=== PATIENT | male | born 1965 | race Caucasian/White ===

== ENCOUNTER 2019-01-10 09:42 | Emergency (ER) | payer BC, SELFPAY ==
[2019-01-10 10:56] LABS: Absolute Lymphocytes (CBC) 1.2 K/uL (0.7-4.9); Basophils % 0.7 % (0-1.3); Hematocrit 47.5 % (39.6-49.0); Lymphocytes % 22.8 % (15.3-44.8); MPV 9.4 fL (7.6-11.3); RBC Red Blood Cell Count 5.25 M/uL (4.33-5.43)
[2019-01-10 11:18] LABS: Albumin 3.9 g/dL (3.4-5.0); Bilirubin Direct 0.3 mg/dL (0-0.2); Bilirubin Total 1.8 mg/dL (0.2-1.0); Potassium 4.2 mmol/L (3.5-5.1); Protein, Total 6.6 g/dL (6.4-8.2)
--- NOTE | 2019-01-10 11:52 | RAD REPORT ---
EXAM DESCRIPTION: CT - Abdomen Pelvis W Contrast - 01/10/2019 11:37 am CLINICAL HISTORY: Abdominal pain/left upper quadrant pain COMPARISON: none. TECHNIQUE: Computed axial tomography of the abdomen pelvis was obtained. 100 cc Isovue-300 was admin istered intravenously. Oral contrast was not requested which limits evaluation of bowel. All CT scans are performed using dose optimization technique as appropriate and may include automated exposure control or mA/KV adjustment according to patient size. FINDINGS: Fatty liver. Spleen, pancreas, adrenal and kidneys appear unremarkable. There is no evidence of diverticulitis. Normal appendix Umbilical hernia contains fat. Mild stranding is present within the fat. This may indicate mild infla mmation. Neck measures 23 millimeters. Small right inguinal hernia IMPRESSION: Umbilical hernia
--- NOTE | 2019-01-10 13:48 | ER ---
Nurse's Notes [facility] Name: Storm Bravo Age: 53 yrs Sex: Male : 1965 Arrival Date: 01/10/2019 Time: 09:44 Bed 27 Private MD: Diagnosis: Umbilical hernia without obstruction or gangrene Presentation: 01/10 09:46 Presenting complaint: Worsening LLQ pain after lifting heavy equipment 1 month ago. Pt hb was told he has a hernia, unable to follow up with surgeon. Transition of care: patient was not received from another setting of care. Onset of symptoms was December 2018. Risk Assessment: Do you want to hurt yourself or someone else? Patient reports no desire to harm self or others. Initial Sepsis Screen: Does the patient meet any 2 criteria? No. Patient's initial sepsis screen is negative. Does the patient have a suspected source of infection? No. Patient's initial sepsis screen is negative. Care prior to arrival: None. 09:46 Method Of Arrival: Ambulatory hb 09:46 Acuity: TEJAL 3 hb Historical: - Allergies: 09:49 No Known Allergies; hb - PMHx: 09:49 arrythmias; hb - PSHx: 09:49 None; hb - Immunization history:: Adult Immunizations up to date. - Social history:: Smoking status: Patient/guardian denies using tobacco. - Ebola Screening: : No symptoms or risks identified at this time. Screenin:17 Abuse screen: Denies threats or abuse. Denies injuries from another. Nutritional aj1 screening: No deficits noted. Tuberculosis screening: No symptoms or risk factors identified. 14:08 Fall Risk None identified. rv Assessment: 10:17 General: Appears in no apparent distress. uncomfortable, Behavior is calm, cooperative, aj1 appropriate for age. Pain: Complains of pain in left lower quadrant Pain does not radiate. Pain currently is 7 out of 10 on a pain scale. Neuro: Level of Consciousness is awake, alert, obeys commands, Oriented to person, place, time, situation. Cardiovascular: Patient's skin is warm and dry. Respiratory: Airway is patent Respiratory effort is even, unlabored, Respiratory pattern is regular, symmetrical. GI: Abdomen is non-distended, Bowel sounds present X 4 quads. Abd is soft and non tender X 4 quads. : No signs and/or symptoms were reported regarding the genitourinary system. EENT: No signs and/or symptoms were reported regarding the EENT system. Derm: No signs and/or symptoms reported regarding the dermatologic system. Skin is pink, warm \T\ dry. normal. Musculoskeletal: No signs and/or symptoms reported regarding the musculoskeletal system. Circulation, motion, and sensation intact. 11:00 Reassessment: Patient appears in no apparent distress at this time. No changes from aj1 previously documented assessment. Patient and/or family updated on plan of care and expected duration. Pain level reassessed. Patient is alert, oriented x 3, equal unlabored respirations, skin warm/dry/pink. 12:25 Reassessment: Patient appears in no apparent distress at this time. No changes from aj1 previously documented assessment. Patient and/or family updated on plan of care and expected duration. Pain level reassessed. Patient is alert, oriented x 3, equal unlabored respirations, skin warm/dry/pink. Vital Signs: 09:49 BP 148 / 98; Pulse 87; Resp 16; Temp 97.8; Pulse Ox 100% on R/A; Weight 108.86 kg; hb Height 5 ft. 10 in. (177.80 cm); Pain 7/10; 11:00 BP 137 / 100; Pulse 66; Resp 18; Pulse Ox 96% on R/A; aj1 12:25 BP 142 / 104; Pulse 66; Resp 18; Pulse Ox 97% on R/A; aj1 13:40 BP 140 / 104; Pulse 64; Resp 18; Pulse Ox 96% on R/A; aj1 09:49 Body Mass Index 34.44 (108.86 kg, 177.80 cm) ED Course: 09:44 Patient arrived in ED. as 09:49 Triage completed. hb 09:49 Arm band placed on. hb 09:51 Hilda Harris, LUIZ is Primary Nurse. aj1 09:52 Jason Manzano NP is PHCP. pm1 09:52 Sagar Burton MD is Attending Physician. pm1 10:17 Patient has correct armband on for positive identification. Bed in low position. Call aj1 light in reach. Side rails up X 1. 10:17 No provider procedures requiring assistance completed. aj1 10:18 Radiology exam delayed due to lab results not completed at this time. (BUN/Creatinine). 10:46 Initial lab(s) drawn, by me, sent to lab. Inserted saline lock: 20 gauge in right aj1 antecubital area, using aseptic technique. Blood collected. 13:54 Jake Parker MD is Referral Physician. pm1 14:08 IV discontinued, intact, bleeding controlled, No redness/swelling at site. Pressure rv dressing applied. Administered Medications: 14:05 Drug: Flexeril 10 mg Route: PO; rv 14:07 Follow up: Response: Medication administered at discharge. rv 14:05 Drug: TORadol 30 mg Route: IVP; Site: right antecubital; rv 14:07 Follow up: Response: Medication administered at discharge. rv Outcome: 13:46 Discharge ordered by . pm1 14:08 Discharged to home ambulatory. rv 14:08 Condition: good 14:08 Discharge instructions given to patient, Instructed on discharge instructions, follow up and referral plans. medication usage, Demonstrated understanding of instructions, follow-up care, medications, Prescriptions given X 2. 14:09 Patient left the ED. rv Signatures: Hilda Harris, RN RN aj1 Humera Lim Shannon Jason Manzano, CHILD PROTECTIVE SERVICES SPECIALIST CHILD PROTECTIVE SERVICES SPECIALIST pm1 Minda Raygoza, Wenceslao Linn RN, RN RN rv
--- NOTE | 2019-01-10 13:49 | EDPHYS ---
Physician Documentation [facility] Name: Storm Bravo Age: 53 yrs Sex: Male : 1965 Arrival Date: 01/10/2019 Time: 09:44 Bed 27 Private MD: TAL Physician Sagar Burton HPI: 01/10 13:34 This 53 yrs old Male presents to ER via Ambulatory with complaints of Pain- pm1 Hernia. 13:34 The patient presents with abdominal pain in the left lower quadrant. Onset: The pm1 symptoms/episode began/occurred 1 month(s) ago. The symptoms do not radiate. Associated signs and symptoms: Pertinent negatives: nausea, vomiting, and diarrhea, chest pain, shortness of breath, testicular pain. The symptoms are described as achy. Modifying factors: The symptoms are alleviated by rest. the symptoms are aggravated by Pushing heavy objects. Patient does not wear safety belt during work. Severity of pain: in the emergency department the pain is unchanged. The patient has been recently seen at an urgent care, last week, for similar complaints, Told that he has a hernia. Historical: - Allergies: 09:49 No Known Allergies; hb - PMHx: 09:49 arrythmias; hb - PSHx: 09:49 None; hb - Immunization history:: Adult Immunizations up to date. - Social history:: Smoking status: Patient/guardian denies using tobacco. - Ebola Screening: : No symptoms or risks identified at this time. ROS: 13:34 Constitutional: Negative for fever, chills, and weight loss, Eyes: Negative for injury, pm1 pain, redness, and discharge, ENT: Negative for injury, pain, and discharge, Neck: Negative for injury, pain, and swelling, Cardiovascular: Negative for chest pain, palpitations, and edema, Respiratory: Negative for shortness of breath, cough, wheezing, and pleuritic chest pain, Back: Negative for injury and pain. 13:34 : Negative for injury, bleeding, discharge, and swelling, MS/Extremity: Negative for injury and deformity, Skin: Negative for injury, rash, and discoloration, Neuro: Negative for headache, weakness, numbness, tingling, and seizure. 13:34 Abdomen/GI: Positive for abdominal pain, Negative for nausea, vomiting, and diarrhea, constipation. Exam: 10:30 Constitutional: This is a well developed, well nourished patient who is awake, alert, pm1 and in no acute distress. Head/Face: Normocephalic, atraumatic. Eyes: Pupils equal round and reactive to light, extra-ocular motions intact. Lids and lashes normal. Conjunctiva and sclera are non-icteric and not injected. Cornea within normal limits. Periorbital areas with no swelling, redness, or edema. ENT: Nares patent. No nasal discharge, no septal abnormalities noted. Tympanic membranes are normal and external auditory canals are clear. Oropharynx with no redness, swelling, or masses, exudates, or evidence of obstruction, uvula midline. Mucous membranes moist. Neck: Trachea midline, no thyromegaly or masses palpated, and no cervical lymphadenopathy. Supple, full range of motion without nuchal rigidity, or vertebral point tenderness. No Meningismus. Chest/axilla: Normal chest wall appearance and motion. Nontender with no deformity. No lesions are appreciated. Cardiovascular: Regular rate and rhythm with a normal S1 and S2. No gallops, murmurs, or rubs. Normal PMI, no JVD. No pulse deficits. Respiratory: Lungs have equal breath sounds bilaterally, clear to auscultation and percussion. No rales, rhonchi or wheezes noted. No increased work of breathing, no retractions or nasal flaring. 10:30 Back: No spinal tenderness. No costovertebral tenderness. Full range of motion. Skin: Warm, dry with normal turgor. Normal color with no rashes, no lesions, and no evidence of cellulitis. MS/ Extremity: Pulses equal, no cyanosis. Neurovascular intact. Full, normal range of motion. 10:30 Abdomen/GI: Inspection: obese Bowel sounds: normal, Palpation: abdomen is soft and non-tender, mass, is not appreciated, rebound tenderness, is not appreciated, Hernia: not appreciated. 10:30 Neuro: Orientation: is normal, Motor: is normal, moves all fours. Vital Signs: 09:49 BP 148 / 98; Pulse 87; Resp 16; Temp 97.8; Pulse Ox 100% on R/A; Weight 108.86 kg; hb Height 5 ft. 10 in. (177.80 cm); Pain 7/10; 11:00 BP 137 / 100; Pulse 66; Resp 18; Pulse Ox 96% on R/A; aj1 12:25 BP 142 / 104; Pulse 66; Resp 18; Pulse Ox 97% on R/A; aj1 13:40 BP 140 / 104; Pulse 64; Resp 18; Pulse Ox 96% on R/A; aj1 09:49 Body Mass Index 34.44 (108.86 kg, 177.80 cm) hb MDM: 09:52 Patient medically screened. pm1 13:45 Data reviewed: vital signs. Data interpreted: Pulse oximetry: on room air is 96 %. pm1 Interpretation: normal. Counseling: I had a detailed discussion with the patient and/or guardian regarding: the historical points, exam findings, and any diagnostic results supporting the discharge/admit diagnosis, lab results, radiology results, the need for outpatient follow up, for definitive care, a general surgeon, to return to the emergency department if symptoms worsen or persist or if there are any questions or concerns that arise at home. 01/10 10:13 Order name: Basic Metabolic Panel; Complete Time: 11:25 pm1 01/10 10:13 Order name: CBC with Diff; Complete Time: 11:04 pm01/10 10:13 Order name: Creatinine for Radiology; Complete Time: 11:25 pm1 01/10 10:13 Order name: Hepatic Function; Complete Time: 11:25 pm1 01/10 10:13 Order name: Lipase; Complete Time: 11:25 pm1 01/10 10:13 Order name: CT Abd/Pelvis - IV Contrast Only pm1 01/10 10:13 Order name: IV Saline Lock; Complete Time: 10:45 pm1 01/10 10:13 Order name: Labs collected and sent; Complete Time: 10:45 pm1 Administered Medications: 14:05 Drug: Flexeril 10 mg Route: PO; rv 14:07 Follow up: Response: Medication administered at discharge. rv 14:05 Drug: TORadol 30 mg Route: IVP; Site: right antecubital; rv 14:07 Follow up: Response: Medication administered at discharge. rv Disposition: 15:35 Co-signature as Attending Physician, Sagar Burton MD I agree with the assessment and foreign plan of care. Disposition: 01/10/19 13:46 Discharged to Home. Impression: Umbilical hernia without obstruction or gangrene. - Condition is Stable. - Discharge Instructions: Hernia, Adult, Muscle Strain. - Prescriptions for Naprosyn 500 mg Oral Tablet - take 1 tablet by ORAL route 2 times per day take with food; 30 tablet. Cyclobenzaprine 10 mg Oral Tablet - take 1 tablet by ORAL route every 8 hours As needed; 30 tablet. - Medication Reconciliation Form, Thank You Letter, Antibiotic Education, Prescription Opioid Use form. - Work release form (01/11/19 08:28). em1 - Follow up: Emergency Department; When: As needed; Reason: Worsening of condition. Follow up: Private Physician; When: 2 - 3 days; Reason: Recheck today's complaints, Continuance of care, Re-evaluation by your physician. Follow up: Jake Parker MD; When: 2 - 3 days; Reason: Recheck today's complaints, Continuance of care, Re-evaluation by your physician. - Problem is new. - Symptoms have improved. Signatures: Dispatcher [employer] EDMS Sagar Burton MD MD cha Marinas, Patrick, PHYSICIAN SPECIALIST PHYSICIAN SPECIALIST pm1 Minda Raygoza RN RN Wenceslao Clark RN RN rv Martinez, Eric em1 Corrections: (The following items were deleted from the chart) 13:54 13:46 01/10/2019 13:46 Discharged to Home. Impression: Umbilical hernia without pm1 obstruction or gangrene. Condition is Stable. Forms are Medication Reconciliation Form, Thank You Letter, Antibiotic Education, Prescription Opioid Use. Follow up: Emergency Department; When: As needed; Reason: Worsening of condition. Follow up: Private Physician; When: 2 - 3 days; Reason: Recheck today's complaints, Continuance of care, Re-evaluation by your physician. Problem is new. Symptoms have improved. pm1 14:09 13:54 01/10/2019 13:46 Discharged to Home. Impression: Umbilical hernia without rv obstruction or gangrene. Condition is Stable. Discharge Instructions: Hernia, Adult, Muscle Strain. Forms are Medication Reconciliation Form, Thank You Letter, Antibiotic Education, Prescription Opioid Use. Follow up: Emergency Department; When: As needed; Reason: Worsening of condition. Follow up: Private Physician; When: 2 - 3 days; Reason: Recheck today's complaints, Continuance of care, Re-evaluation by your physician. Follow up: Jake Parker; When: 2 - 3 days; Reason: Recheck today's complaints, Continuance of care, Re-evaluation by your physician. Problem is new. Symptoms have improved. pm1
[2019-01-10] MEDS ORDERED: KETOROLAC 30 MG/ML INJ ONE (13:52)
[2019-01-10] MEDS ORDERED: CYCLOBENZAPRINE 10 MG TAB ONE (13:52)
== END 2019-01-10 14:09 | disposition home or self-care (01) ==
LOC: ER 09:42
DX: K42.9 Umbilical hernia without obstruction or gangrene (principal)
CPT/HCPCS: 85025; 80048; 36415; 80076; 83690; 74177; 96374; 99284; Q9967

== ENCOUNTER 2020-04-11 09:19 | Emergency (ER) | payer SELFPAY ==
--- NOTE | 2020-04-11 10:26 | RAD REPORT ---
EXAM DESCRIPTION: RAD - Pelvis - 04/11/2020 10:11 am CLINICAL HISTORY: PAIN, no recent trauma COMPARISON: No comparisons TECHNIQUE: AP imaging of the pelvis was obtained. FINDINGS: No fracture of the bony pelvis. No fracture, dislocation or other acute hip joint finding. No significant SI joint findings. Multiple phleboliths seen in the lower pelvis. No soft tissue abnormality. IMPRESSION: Negative pelvis for acute or significant findings.
--- NOTE | 2020-04-11 10:26 | RAD REPORT ---
EXAM DESCRIPTION: RAD - Hip Right 2 View - 04/11/2020 10:11 am CLINICAL HISTORY: PAIN, nontraumatic COMPARISON: No comparisons FINDINGS: AP and frog-leg views of the right hip were obtained. There is no fracture or dislocation. No AVN or focal head abnormality. No acute or destructive bony p rocess seen. IMPRESSION: Negative right hip examination for acute or significant findings.
--- NOTE | 2020-04-11 10:27 | RAD REPORT ---
EXAM DESCRIPTION: RAD - Knee Right 3 View - 04/11/2020 10:11 am CLINICAL HISTORY: PAIN COMPARISON: <Comparisons> FINDINGS: No fracture, dislocation or periosteal reaction.No joint effusion seen. No joint space sarahy rowing. No foreign body or other soft tissue abnormality. IMPRESSION: Negative right knee. Clinical concerns for internal derangement or occult bony injury could be further assessed with MR im aging.
--- NOTE | 2020-04-11 10:37 | EDPHYS ---
Physician Documentation [facility] Name: Storm Bravo Age: 54 yrs Sex: Male : 1965 Arrival Date: 04/11/2020 Time: 09:22 Bed 14 Private MD: ED Physician Manjit Mullins HPI: 04/11 09:40 This 54 yrs old Male presents to ER via Ambulatory with complaints of Hip cp Problem. 09:40 The patient presents with pain, that is chronic. cp 09:40 The complaints affect the right knee and right hip. Context: the patient can fully bear cp weight, the patient is able to ambulate, with mild difficulty. 09:40 Patient reports chronic right SI joint pain that became worse 2-3 days ago after cp installing new well pump. Now having pain of right hip and right knee. Historical: - Allergies: 09:30 No Known Allergies; aa5 - PMHx: 09:30 Heart arrhythmias; aa5 - PSHx: 09:30 None; aa5 - Immunization history:: Adult Immunizations unknown. - Social history:: Smoking status: Patient denies any tobacco usage or history of. ROS: 09:45 MS/extremity: Positive for pain, of the right hip and right knee, Negative for injury cp or acute deformity, decreased range of motion, paresthesias. 09:45 Constitutional: Negative for body aches, chills, fever. cp 09:45 Cardiovascular: Negative for chest pain, palpitations. 09:45 Respiratory: Negative for cough, shortness of breath, wheezing. 09:45 Abdomen/GI: Negative for abdominal pain, nausea, vomiting, and diarrhea. 09:45 Skin: Negative for rash. 09:45 Neuro: Negative for numbness, tingling, weakness. 09:45 All other systems are negative. Exam: 09:47 Constitutional: The patient appears in no acute distress, alert, awake, non-toxic, well cp developed, well nourished. 09:47 Head/Face: Normocephalic, atraumatic. cp 09:47 Neck: ROM/movement: is normal, is supple, without pain, no range of motions limitations. 09:47 Chest/axilla: Inspection: normal, Palpation: is normal, no crepitus, no tenderness. 09:47 Cardiovascular: Rate: normal. 09:47 Respiratory: the patient does not display signs of respiratory distress, Respirations: normal, no use of accessory muscles, no retractions. 09:47 Abdomen/GI: Inspection: abdomen appears normal, Palpation: abdomen is soft and non-tender, in all quadrants, voluntary guarding, is not appreciated, involuntary guarding, is not appreciated. 09:47 Back: pain, that is mild, of the right low back, vertebral tenderness, is not appreciated. 09:47 Musculoskeletal/extremity: Joints: All joints are normal except the right hip displays painful range of motion, tenderness, the right knee displays painful range of motion, tenderness, Weight bearing: able to fully bear weight. 09:47 Skin: no rash present. 09:47 Neuro: Orientation: to person, place \T\ time. Mentation: is normal, Motor: moves all fours, strength is normal, Sensation: is normal, Gait: is steady. Vital Signs: 09:29 BP 140 / 99; Pulse 87; Resp 16 S; Temp 98.5(O); Pulse Ox 98% on R/A; Weight 113.4 kg aa5 (R); Height 5 ft. 10 in. (177.80 cm) (R); Pain 7/10; 10:46 BP 144 / 88; Pulse 81; Resp 15 S; Pulse Ox 99% on R/A; ca1 09:29 Body Mass Index 35.87 (113.40 kg, 177.80 cm) aa5 MDM: 09:37 Patient medically screened. cp 09:44 ED course: No active RXs for narcotic pain meds according to [place] prescription monitor cp website. 10:20 Test interpretation: by ED physician or midlevel provider: xray of pelvis negative for cp fracture, xrays of right hip negative for fracture and xrays of right knee negative for fracture. 10:35 Data reviewed: vital signs, nurses notes, radiologic studies, plain films. cp 10:35 Counseling: I had a detailed discussion with the patient and/or guardian regarding: the cp historical points, exam findings, and any diagnostic results supporting the discharge/admit diagnosis, radiology results, the need for outpatient follow up, a orthopedic surgeon, to return to the emergency department if symptoms worsen or persist or if there are any questions or concerns that arise at home. 04/11 09:38 Order name: XRAY Pelvis; Complete Time: 10:29 cp 1203 10:29 Interpretation: Report reviewed. cp 04/11 09:38 Order name: XRAY Hip RIGHT 2 view; Complete Time: 10:29 cp 04/11 10:29 Interpretation: Report reviewed. cp 04/11 09:38 Order name: XRAY Knee RIGHT 3 view; Complete Time: 10:29 cp 04/11 10:30 Interpretation: Report reviewed. cp Administered Medications: No medications were administered Disposition: 10:45 Chart complete. cp 12:05 I agree with the assessment and plan of care. kdr Disposition: 04/11/20 10:36 Discharged to Home. Impression: Pain in right hip, Pain in right knee. - Condition is Stable. - Discharge Instructions: Knee Pain, Hip Pain, Sacroiliac Joint Dysfunction. - Prescriptions for Cyclobenzaprine 10 mg Oral Tablet - take 1 tablet by ORAL route every 8 hours As needed; 20 tablet. Mobic 7.5 mg Oral Tablet - take 1 tablet by ORAL route once daily take with food; 30 tablet. Tramadol 50 mg Oral Tablet - take 1 tablet by ORAL route every 8 hours as needed; 12 tablet. - Medication Reconciliation Form, Thank You Letter, Antibiotic Education, Prescription Opioid Use form. - Follow up: Lamont Catalan MD; When: 2 - 3 days; Reason: Recheck today's complaints. - Problem is an ongoing problem. - Symptoms have improved. Signatures: Dispatcher [employer] EDMS Manjit Mullins MD MD [facility] Angle Nassar RN RN aa5 Sagar Eastman PA PA cp Liliana Shaikh RN RN ca1 Corrections: (The following items were deleted from the chart) 10:50 10:36 04/11/2020 10:36 Discharged to Home. Impression: Pain in right hip; Pain in right ca1 knee. Condition is Stable. Forms are Medication Reconciliation Form, Thank You Letter, Antibiotic Education, Prescription Opioid Use. Follow up: Lamont Catalan; When: 2 - 3 days; Reason: Recheck today's complaints. Problem is an ongoing problem. Symptoms have improved. cp
--- NOTE | 2020-04-11 10:37 | ER ---
Nurse's Notes [facility] Name: Storm Bravo Age: 54 yrs Sex: Male : 1965 Arrival Date: 04/11/2020 Time: : Bed 14 Private MD: Diagnosis: Pain in right hip;Pain in right knee Presentation: 04/11 09:29 Chief complaint: Patient states: Right hip pain that began 2-3 days ago. Pt states "I aa5 was having trouble with my well and I was putting a new pump motor when I felt my hip pop". 09:29 Coronavirus screen: Client denies travel out of the [place] in the last 14 days. At this aa5 time, the client does not indicate any symptoms associated with coronavirus-19. Ebola Screen: Patient negative for fever greater than or equal to 101.5 degrees Fahrenheit, and additional compatible Ebola Virus Disease symptoms. Initial Sepsis Screen: Does the patient meet any 2 criteria? No. Patient's initial sepsis screen is negative. Does the patient have a suspected source of infection? No. Patient's initial sepsis screen is negative. Risk Assessment: Do you want to hurt yourself or someone else? Patient reports no desire to harm self or others. Onset of symptoms was 2019. 09:29 Acuity: TEJAL 4 aa5 09:29 Method Of Arrival: Ambulatory aa5 Historical: - Allergies: 09:30 No Known Allergies; aa5 - PMHx: 09:30 Heart arrhythmias; aa5 - PSHx: 09:30 None; aa5 - Immunization history:: Adult Immunizations unknown. - Social history:: Smoking status: Patient denies any tobacco usage or history of. Screenin:00 Abuse screen: Denies threats or abuse. Denies injuries from another. Nutritional ca1 screening: No deficits noted. Tuberculosis screening: No symptoms or risk factors identified. Fall Risk None identified. Assessment: 10:00 General: Appears in no apparent distress. comfortable, Behavior is calm, cooperative, ca1 appropriate for age. Pain: Complains of pain in right hip Pain currently is 7 out of 10 on a pain scale. Pain began 2-3 days ago. Aggravated by weight bearing. Neuro: Level of Consciousness is awake, alert, obeys commands, Oriented to person, place, time, situation. Derm: Skin is intact, is healthy with good turgor, Skin is pink, warm \\T\\ dry. Musculoskeletal: Circulation, motion, and sensation intact. Capillary refill < 3 seconds. 10:46 Reassessment: Patient appears in no apparent distress at this time. Patient is alert, ca1 oriented x 3, equal unlabored respirations, skin warm/dry/pink. Vital Signs: 09:29 BP 140 / 99; Pulse 87; Resp 16 S; Temp 98.5(O); Pulse Ox 98% on R/A; Weight 113.4 kg aa5 (R); Height 5 ft. 10 in. (177.80 cm) (R); Pain 7/10; 10:46 BP 144 / 88; Pulse 81; Resp 15 S; Pulse Ox 99% on R/A; ca1 09:29 Body Mass Index 35.87 (113.40 kg, 177.80 cm) aa5 ED Course: 09:22 Patient arrived in ED. ag5 09:29 Arm band placed on Patient placed in an exam room, on a stretcher. aa5 09:33 Sagar Eastman PA is PHCP. cp 09:33 Manjit Mullins MD is Attending Physician. cp 09:51 Triage completed. aa5 10:00 Patient has correct armband on for positive identification. Bed in low position. Call ca1 light in reach. Side rails up X 1. Pulse ox on. NIBP on. Warm blanket given. 10:11 XRAY Pelvis In Process Unspecified. EDMS 10:12 XRAY Hip RIGHT 2 view In Process Unspecified. EDMS 10:12 XRAY Knee RIGHT 3 view In Process Unspecified. EDMS 10:14 Liliana Shaikh, LUIZ is Primary Nurse. ca1 10:35 Lamont Catalan MD is Referral Physician. cp 10:46 No provider procedures requiring assistance completed. Patient did not have IV access ca1 during this emergency room visit. Administered Medications: No medications were administered Outcome: 10:36 Discharge ordered by . cp 10:46 Discharged to home ambulatory. ca1 10:46 Condition: stable 10:46 Discharge instructions given to patient, Instructed on discharge instructions, follow up and referral plans. no drinking with medication, no driving heavy equipment, medication usage, Demonstrated understanding of instructions, follow-up care, medications, Prescriptions given X 3. 10:50 Patient left the ED. ca1 Signatures: Dispatcher [employer] Angle Petersen, RN RN aa5 Sagar Eastman PA PA cp Acob, Cheryl, RN RN ca1 Ines Page ag5
== END 2020-04-11 10:50 | disposition home or self-care (01) ==
LOC: ER 09:19
DX: M25.551 Pain in right hip (principal); M25.562 Pain in left knee
CPT/HCPCS: 72170; 99283

== ENCOUNTER 2020-08-26 14:17 | Inpatient (IN) | payer SELFPAY ==
--- NOTE | 2020-08-26 18:39 | RAD REPORT ---
EXAM DESCRIPTION: [place] Single View08/26/2020 6:29 pm CLINICAL HISTORY: Chest pain COMPARISON: 2016 FINDINGS: The lungs appear clear of acute infiltrate. The heart is normal size IMPRESSION: No acute abnormalities displayed
[2020-08-26 20:07] LABS: Protime INR 0.97
[2020-08-26 20:23] LABS: ALT/SGPT 66 U/L (12-78); AST/SGOT 28 U/L (15-37); Albumin 4.1 g/dL (3.4-5.0); Alkaline Phosphatase 105 U/L (45-117); BUN Blood Urea Nitrogen 19 mg/dL (7-18); Bicarbonate 26 mmol/L (21-32); Bilirubin Direct 0.2 mg/dL (0-0.2); Bilirubin Total 1.5 mg/dL (0.2-1.0); CKMB Creatine Kinase MB 1.4 ng/mL (0.3-3.6); Creatine Phosphokinase 113 U/L (39-308); Glucose Level 116 mg/dL (74-106); Lipase 82 U/L (73-393); Magnesium 2.4 mg/dL (1.8-2.4); NT PRO-BNP 12 pg/mL (<125); Potassium 4.1 mmol/L (3.5-5.1); Protein, Total 7.1 g/dL (6.4-8.2); Sodium Level 141 mmol/L (136-145); Troponin (Emerg Dept Use Only) < 0.02 ng/mL (0.0-0.045)
[2020-08-26 20:25] LABS: Absolute Lymphocytes (CBC) 1.5 K/uL (0.7-4.9); Basophils % 0.7 % (0-1.3); Hematocrit 49.5 % (39.6-49.0); Lymphocytes % 26.5 % (15.3-44.8); MPV 9.6 fL (7.6-11.3); RBC Red Blood Cell Count 5.57 M/uL (4.33-5.43)
[2020-08-26] MEDS ORDERED: ENOXAPARIN 100 MG/ML SYR SQ ONE (20:29)
[2020-08-26] MEDS ORDERED: FAMOTIDINE 20 MG/2 ML VIAL IV ONE (20:29)
[2020-08-26] MEDS ORDERED: NA CHLORIDE 0.9% 1,000 ML ONE (20:29)
[2020-08-26] MEDS ORDERED: METOPROLOL TAR 50 MG TAB ONE (20:29)
[2020-08-26] MEDS ORDERED: ASPIRIN 81 MG CHEWABLE TABLET ONE (20:29)
--- NOTE | 2020-08-26 20:32 | EDPHYS ---
Physician Documentation [facility] Name: Storm Bravo Age: 55 yrs Sex: Male : 1965 Arrival Date: 08/26/2020 Time: 14:18 Bed 26 Private MD: ED Physician Sagar Burton HPI: 08/26 19:48 This 55 yrs old Male presents to ER via Ambulatory with complaints of foreign Shortness Of Breath, Chest Pain. 19:48 The patient has shortness of breath at rest, with light activity. Onset: The foreign symptoms/episode began/occurred last night. Duration: The symptoms are continuous, and are steadily getting worse. The patient's shortness of breath has no apparent modifying factors. Associated signs and symptoms: Pertinent positives: chest pain, non-productive cough. Severity of symptoms: At their worst the symptoms were mild moderate in the emergency department the symptoms have improved mildly. The patient has experienced similar episodes in the past, a few times. Historical: - Allergies: 14:28 No Known Allergies; ll1 - PMHx: 14:28 arrythmias; Heart Arrhythmias; ll1 - PSHx: 14:28 None; ll1 - Immunization history:: Client reports receiving the 1st dose of the Covid vaccine, Flu vaccine is up to date. - Social history:: Smoking status: Patient denies any tobacco usage or history of. ROS: 19:49 Constitutional: Negative for fever, chills, and weight loss, Eyes: Negative for injury, foreign pain, redness, and discharge, ENT: Negative for injury, pain, and discharge, Neck: Negative for injury, pain, and swelling, Respiratory: Negative for shortness of breath, cough, wheezing, and pleuritic chest pain, Abdomen/GI: Negative for abdominal pain, nausea, vomiting, diarrhea, and constipation, Back: Negative for injury and pain, : Negative for injury, bleeding, discharge, and swelling, MS/Extremity: Negative for injury and deformity, Skin: Negative for injury, rash, and discoloration, Neuro: Negative for headache, weakness, numbness, tingling, and seizure, Psych: Negative for depression, anxiety, suicide ideation, homicidal ideation, and hallucinations, Allergy/Immunology: Negative for hives, rash, and allergies, Endocrine: Negative for neck swelling, polydipsia, polyuria, polyphagia, and marked weight changes, Hematologic/Lymphatic: Negative for swollen nodes, abnormal bleeding, and unusual bruising. 19:49 Cardiovascular: Positive for chest pain, of the chest. Exam: 19:49 Constitutional: This is a well developed, well nourished patient who is awake, alert, foreign and in no acute distress. Head/Face: Normocephalic, atraumatic. Eyes: Pupils equal round and reactive to light, extra-ocular motions intact. Lids and lashes normal. Conjunctiva and sclera are non-icteric and not injected. Cornea within normal limits. Periorbital areas with no swelling, redness, or edema. ENT: Nares patent. No nasal discharge, no septal abnormalities noted. Tympanic membranes are normal and external auditory canals are clear. Oropharynx with no redness, swelling, or masses, exudates, or evidence of obstruction, uvula midline. Mucous membranes moist. Neck: Trachea midline, no thyromegaly or masses palpated, and no cervical lymphadenopathy. Supple, full range of motion without nuchal rigidity, or vertebral point tenderness. No Meningismus. Chest/axilla: Normal chest wall appearance and motion. Nontender with no deformity. No lesions are appreciated. Cardiovascular: Regular rate and rhythm with a normal S1 and S2. No gallops, murmurs, or rubs. Normal PMI, no JVD. No pulse deficits. Respiratory: Lungs have equal breath sounds bilaterally, clear to auscultation and percussion. No rales, rhonchi or wheezes noted. No increased work of breathing, no retractions or nasal flaring. Abdomen/GI: Soft, non-tender, with normal bowel sounds. No distension or tympany. No guarding or rebound. No evidence of tenderness throughout. Back: No spinal tenderness. No costovertebral tenderness. Full range of motion. Male : Normal genitalia with no discharge or lesions. Skin: Warm, dry with normal turgor. Normal color with no rashes, no lesions, and no evidence of cellulitis. MS/ Extremity: Pulses equal, no cyanosis. Neurovascular intact. Full, normal range of motion. Neuro: Awake and alert, GCS 15, oriented to person, place, time, and situation. Cranial nerves II-XII grossly intact. Motor strength 5/5 in all extremities. Sensory grossly intact. Cerebellar exam normal. Normal gait. Psych: Awake, alert, with orientation to person, place and time. Behavior, mood, and affect are within normal limits. 19:49 Musculoskeletal/extremity: ROM: no acute changes, intact in all extremities, Circulation is intact in all extremities. Pulses: Sensation intact. Compartment Syndrome exam of affected extremity: is normal. DVT Exam: No signs of deep vein thrombosis. no pain, no swelling, no tenderness, negative Homans' sign noted on exam, no appreciated bluish discoloration, no erythema, no increased warmth. Vital Signs: 14:26 BP 166 / 119; Pulse 87; Resp 18; Temp 98.6; Pulse Ox 97% ; Weight 113.4 kg; Height 5 ll1 ft. 10 in. (177.80 cm); Pain 4/10; 20:19 BP 157 / 109; Pulse 68; Resp 16; Pulse Ox 99% ; sf 20:40 BP 150 / 111; Pulse 66; Resp 16; Pulse Ox 99% ; sf 21:00 BP 148 / 99; Pulse 69; Resp 16; Pulse Ox 100% ; sf 21:20 BP 153 / 104; Pulse 62; Resp 16; Pulse Ox 100% ; sf 21:40 BP 158 / 115; Pulse 62; Resp 16; Pulse Ox 99% ; sf 22:00 BP 154 / 120; Pulse 65; Resp 16; Pulse Ox 99% ; sf 14:26 Body Mass Index 35.87 (113.40 kg, 177.80 cm) ll1 MDM: 19:24 Patient medically screened. foreign 19:51 Differential diagnosis: Bronchitis CHF exacerbation, abnormal EKG, acute pericarditis, foreign anxiety, coronary artery disease chest wall pain, congestive heart failure gastritis, gastroesophageal reflux disease (GERD), hiatal hernia, pancreatitis, pleurisy, pneumonia, pulmonary embolus, stable angina, unstable angina, pneumonia, pulmonary edema, Pulmonary Embolism Unstable Angina. Antibiotic administration: Not indicated, the patient does not have an appreciated infiltrate. HEART Score: History: Slightly Suspicious (0), ECG: Non specific repolarization disturbance / LBTB / PM (1), Age: > 45 and < 65 years (1), Risk Factors: 1 or 2 risk factors (1), [Hypertension] [Obesity] Troponin: < or = 1 x Normal Limit (0). The patient was given aspirin in the Emergency Department. The patient's Wells Deep Vein Thrombosis Score was calculated as follows: Total Score: 0. This patient was found to be at low risk for a deep vein thrombosis by using the Well's assessment criteria Total Score: 0-2 Pts- Low Risk. The patient's pulmonary embolism risk score was calculated as follows: Total Score: 0-2 points. This patient was found to be at low risk for a pulmonary embolism by using the Well's assessment criteria Total Score: 0-2 points. This patient was found to be at low risk for a pulmonary embolism by using the Well's assessment criteria. OLIVIA Risk Score: 1 - ASA use in past 7 days, TOTAL SCORE = 1. Immunization status: Influenza vaccine: Data reviewed: vital signs, nurses notes, lab test result(s), EKG, radiologic studies, plain films. Data interpreted: engine monitor: rate is 87 beats/min, rhythm is regular, Pulse oximetry: on room air is 97 %. Test interpretation: by ED physician or midlevel provider: ECG, plain radiologic studies. 08/26 17:55 Order name: Blood Culture Adult (2) 08/26 17:55 Order name: BMP; Complete Time: 20:24 08/26 17:55 Order name: CBC with Diff 08/26 17:55 Order name: Ckmb; Complete Time: 20:24 08/26 17:55 Order name: CPK; Complete Time: 20:24 08/26 17:55 Order name: D-Dimer; Complete Time: 20:24 08/26 17:55 Order name: Hepatic Function; Complete Time: 20:24 08/26 17:55 Order name: Lipase; Complete Time: 20:24 08/26 17:55 Order name: Magnesium; Complete Time: 20:24 08/26 17:55 Order name: NT PRO-BNP; Complete Time: 20:24 08/26 17:55 Order name: PT-INR; Complete Time: 20:24 08/26 17:55 Order name: Ptt, Activated; Complete Time: 20:24 08/26 17:55 Order name: Troponin (emerg Dept Use Only); Complete Time: 20:24 08/26 17:56 Order name: Blood Culture [facility] 08/26 20:25 Order name: CBC Smear Scan [facility] 08/26 21:11 Order name: SARS-COV-2 RT PCR; Complete Time: 21:39 [facility] 08/26 22:05 Order name: Urine Dipstick-Ancillary [facility] 08/27 01:20 Order name: Troponin I [facility] 08/27 01:20 Order name: T4 Free [facility] 08/27 01:20 Order name: Thyroid Stimulating Hormone [facility] 08/27 05:01 Order name: CBC with Automated Diff [facility] 08/27 05:23 Order name: Hemoglobin A1c [facility] 08/27 05:25 Order name: Troponin I [facility] 08/27 05:46 Order name: Comprehensive Metabolic Panel [facility] 08/27 05:46 Order name: Phosphorus [facility] 08/27 05:46 Order name: Lipid Profile [facility] 08/27 05:46 Order name: Magnesium [facility] 08/27 05:57 Order name: LDL, Direct [facility] 08/27 06:07 Order name: Urinalysis [facility] 08/26 17:55 Order name: XRAY CXR (1 view); Complete Time: 20:24 [facility] 08/26 17:55 Order name: EKG; Complete Time: 17:57 [facility] 08/26 17:55 Order name: Cardiac monitoring; Complete Time: 20:07 [facility] 08/26 17:55 Order name: EKG - Nurse/Tech; Complete Time: 19:25 [facility] 08/26 17:55 Order name: IV Saline Lock; Complete Time: 20:07 [facility] 08/26 17:55 Order name: Labs collected and sent; Complete Time: 20:07 [facility] 08/26 17:55 Order name: O2 Per Protocol; Complete Time: 20:07 [facility] 08/26 17:55 Order name: O2 Sat Monitoring; Complete Time: 20:07 [facility] 08/26 19:26 Order name: Urine Dipstick-Ancillary (obtain specimen); Complete Time: 22:05 [facility] 08/26 21:20 Order name: CONS Physician Consult [facility] Administered Medications: 20:15 Drug: NS 0.9% 1000 ml Route: IV; Rate: 125 ml/hr; Site: right antecubital; sf 22:23 Follow up: IV Status: Infusion continued upon admission sf 20:23 Drug: Aspirin Chewable Tablet 324 mg Route: PO; sf 21:34 Follow up: Response: No adverse reaction sf 20:23 Drug: Pepcid (famotidine) 20 mg Route: IVP; Site: right antecubital; sf 21:33 Follow up: Response: No adverse reaction sf 20:24 Drug: Lopressor (metoprolol TARTRATE) 50 mg Route: PO; sf 21:34 Follow up: Response: No adverse reaction sf 20:26 Drug: Lovenox (enoxaparin) 100 mg Route: Sub-Q; Site: right lower abdomen; sf 21:34 Follow up: Response: No adverse reaction sf 21:33 Drug: Norvasc (amlodipine) 10 mg Route: PO; sf Disposition: 08/26/20 20:31 Hospitalization ordered by Keith Douglas for Observation. Preliminary diagnosis are Dyspnea, Chest pain, unspecified, Essential (primary) hypertension. - Bed requested for [facility] ER HOLD. - Status is Observation. tw2 - Condition is Stable. - Problem is new. - Symptoms have improved. Signatures: Dispatcher [employer] EDAL Sagar Burton MD MD cha Lasagna, Tonya, RN RN tl1 Corinne Ross RN RN tw2 Jaime Feng MD MD 4 Zacarias Bear RN RN 1 Lamont Scott RN RN sf Corrections: (The following items were deleted from the chart) 20:13 17:57 CORONAVIRUS+MR.LAB.SAUL ordered. [facility] 08/27 02:24 08/26 20:31 Hospitalization Ordered by Keith Douglas MD for Observation. Preliminary tl1 diagnosis is Dyspnea; Chest pain, unspecified; Essential (primary) hypertension. Bed requested for Telemetry/MedSurg (observation). Status is Observation. Condition is Stable. Problem is new. Symptoms have improved. [facility] 08/27 09:33 02:24 08/26/2020 20:31 Hospitalization Ordered by Keith Douglas MD for Observation. tw2 Preliminary diagnosis is Dyspnea; Chest pain, unspecified; Essential (primary) hypertension. Bed requested for [facility] ER HOLD. Status is Observation. Condition is Stable. Problem is new. Symptoms have improved. tl1
--- NOTE | 2020-08-26 20:32 | ER ---
Nurse's Notes [facility] Name: Storm Bravo Age: 55 yrs Sex: Male : 1965 Arrival Date: 08/26/2020 Time: 14:18 Bed 26 Private MD: Diagnosis: Dyspnea;Chest pain, unspecified;Essential (primary) hypertension Presentation: 08/26 14:26 Chief complaint: Patient states: CP and SOB since last night. Coronavirus screen: ll1 Client denies travel out of the [place] in the last 14 days. At this time, the client does not indicate any symptoms associated with coronavirus-19. Ebola Screen: Patient denies travel to an Ebola-affected area in the 21 days before illness onset. Initial Sepsis Screen: Does the patient meet any 2 criteria? No. Patient's initial sepsis screen is negative. Does the patient have a suspected source of infection? No. Patient's initial sepsis screen is negative. Risk Assessment: Do you want to hurt yourself or someone else? Patient reports no desire to harm self or others. Onset of symptoms was August 25, 2020. 14:26 Method Of Arrival: Ambulatory [facility] 14:26 Acuity: TEJAL 3 ll1 Historical: - Allergies: 14:28 No Known Allergies; ll1 - PMHx: 14:28 arrythmias; Heart Arrhythmias; ll1 - PSHx: 14:28 None; ll1 - Immunization history:: Client reports receiving the 1st dose of the Covid vaccine, Flu vaccine is up to date. - Social history:: Smoking status: Patient denies any tobacco usage or history of. Screenin:10 Abuse screen: Denies threats or abuse. Denies injuries from another. Nutritional sf screening: No deficits noted. Tuberculosis screening: No symptoms or risk factors identified. Fall Risk None identified. IV access (20 points). Total Fowler Fall Scale indicates No Risk (0-24 pts). Assessment: 20:10 General: Appears in no apparent distress. comfortable, Behavior is calm, cooperative. sf Pain: Complains of pain in chest. Neuro: No deficits noted. Level of Consciousness is awake, alert, Oriented to person, place, time, situation. Cardiovascular: Reports chest pain, shortness of breath, Denies diaphoresis, lightheadedness, Patient's skin is warm and dry. Rhythm is sinus rhythm. Respiratory: Reports shortness of breath Airway is patent Respiratory effort is even, unlabored, Respiratory pattern is regular, symmetrical, Breath sounds are clear Denies cough. GI: No deficits noted. No signs and/or symptoms were reported involving the gastrointestinal system. : No deficits noted. No signs and/or symptoms were reported regarding the genitourinary system. EENT: No deficits noted. No signs and/or symptoms were reported regarding the EENT system. Derm: No deficits noted. No signs and/or symptoms reported regarding the dermatologic system. Skin is pink, warm \T\ dry. Musculoskeletal: No deficits noted. No signs and/or symptoms reported regarding the musculoskeletal system. 21:35 Reassessment: Patient appears in no apparent distress at this time. No changes from sf previously documented assessment. Patient and/or family updated on plan of care and expected duration. Pain level reassessed. Patient is alert, oriented x 3, equal unlabored respirations, skin warm/dry/pink. Vital Signs: 14:26 BP 166 / 119; Pulse 87; Resp 18; Temp 98.6; Pulse Ox 97% ; Weight 113.4 kg; Height 5 ll1 ft. 10 in. (177.80 cm); Pain 4/10; 20:19 BP 157 / 109; Pulse 68; Resp 16; Pulse Ox 99% ; sf 20:40 BP 150 / 111; Pulse 66; Resp 16; Pulse Ox 99% ; sf 21:00 BP 148 / 99; Pulse 69; Resp 16; Pulse Ox 100% ; sf 21:20 BP 153 / 104; Pulse 62; Resp 16; Pulse Ox 100% ; sf 21:40 BP 158 / 115; Pulse 62; Resp 16; Pulse Ox 99% ; sf 22:00 BP 154 / 120; Pulse 65; Resp 16; Pulse Ox 99% ; sf 14:26 Body Mass Index 35.87 (113.40 kg, 177.80 cm) ll1 ED Course: 14:18 Patient arrived in ED. ds1 14:28 Triage completed. ll1 14:29 Arm band placed on. ll1 18:29 XRAY CXR (1 view) In Process Unspecified. EDMS 19:24 Sagar Burton MD is Attending Physician. foreign 19:24 Lamont Scott RN is Primary Nurse. sf 19:27 Inserted saline lock: 20 gauge in right antecubital area, using aseptic technique. jp3 Blood collected. 19:28 First set of blood cultures drawn by me. jp3 19:38 Initial lab(s) drawn, by me, sent to lab. Second set of blood cultures drawn by me. EKG jp3 done, by ED staff, reviewed by Sagar Burton MD. COVID swab sent to lab. Patient maintains SpO2 saturation greater than 95% on room air. 20:10 Patient has correct armband on for positive identification. Bed in low position. Call sf light in reach. Side rails up X2. manager estate on. Pulse ox on. NIBP on. Door closed. Noise minimized. Visitors limited. Lights dimmed. Verbal reassurance given. 20:29 Keith Douglas MD is Hospitalizing Provider. foreign 21:55 No provider procedures requiring assistance completed. Urine collected: clean catch specimen, clear. Patient admitted, IV remains in place. 22:23 Report given to LUIZ Aguirre. sf 08/27 07:40 Primary Nurse role handed off by Lamont Scott RN bd Administered Medications: 08/26 20:15 Drug: NS 0.9% 1000 ml Route: IV; Rate: 125 ml/hr; Site: right antecubital; sf 22:23 Follow up: IV Status: Infusion continued upon admission sf 20:23 Drug: Aspirin Chewable Tablet 324 mg Route: PO; sf 21:34 Follow up: Response: No adverse reaction sf 20:23 Drug: Pepcid (famotidine) 20 mg Route: IVP; Site: right antecubital; sf 21:33 Follow up: Response: No adverse reaction sf 20:24 Drug: Lopressor (metoprolol TARTRATE) 50 mg Route: PO; sf 21:34 Follow up: Response: No adverse reaction sf 20:26 Drug: Lovenox (enoxaparin) 100 mg Route: Sub-Q; Site: right lower abdomen; sf 21:34 Follow up: Response: No adverse reaction sf 21:33 Drug: Norvasc (amlodipine) 10 mg Route: PO; Outcome: 20:31 Decision to Hospitalize by Provider. foreign 21:55 Admitted to ER Hold. Please see [facility] for further documentation. sf 21:55 Condition: stable 21:55 Instructed on the need for admit. 08/27 09:33 Patient left the ED. tw2 Signatures: Dispatcher [employer] EDMS Ruby Mckeon Corey, MD MD cha Sanford, Demi ds1 Corinne Ross RN RN tw2 Carlos A Fabian 3 Zacarias Bear RN RN ll1 Lamont Scott RN RN sf Corrections: (The following items were deleted from the chart) 08/26 21:34 21:33 Response: No adverse reaction bg pederson
[2020-08-26] MEDS ORDERED: AMLODIPINE 10 MG TAB ONE (21:49)
[2020-08-26 21:51] LABS: Blood Morphology Comment NOT SEEN (NOT SEEN); Platelet Estimate ADEQ; White Blood Cell Scan OK (OK)
[2020-08-26 22:04] LABS: Urine Blood Negative (Negative); Urine Glucose Trace (Negative); Urine Protein Trace (Negative); Urine Specific Gravity >=1.030 (1.005-1.030)
[2020-08-26] MEDS ORDERED: NITROGLYCERIN 0.4 MG/TAB SL PRN (22:34)
[2020-08-26] MEDS ORDERED: HYDRALAZINE HCL 20 MG/ML VIAL IV PRN (22:34)
[2020-08-26] MEDS ORDERED: MORPHINE 2 MG/ML SYR IV PRN (22:34)
[2020-08-26] MEDS ORDERED: ACETAMINOPHEN 500 MG TAB PO PRN (22:34)
[2020-08-26] MEDS ORDERED: ONDANSETRON 4 MG/2 ML VIAL IV PRN (22:34)
[2020-08-26 22:38] VITALS: BMI 35.9
[2020-08-27 01:10] LABS: Troponin I < 0.02 ng/mL (0.0-0.045)
--- NOTE | 2020-08-27 02:17 | P.HP ---
Certification for Inpatient Patient admitted to: Observation With expected LOS: <2 Midnights Patient will require the following post-hospital care: None Practitioner: I am a practitioner with admitting privileges, knowledge of patient current condition, hospital course, and medical plan of care. Services: Services provided to patient in accordance with Admission requirements found in Title 42 Section 412.3 of the Code of Federal Regulations Patient History Date of Service: 08/27/20 Primary Care Provider: Benjamin Reason for admission: chest pain History of Present Illness: Mr. Bravo is a 55 yo male who presents with chest pain beginning last night. He says he was having troubling sleeping when he had onset of 5/10 sternal chest tightness and difficulty breathing lasting for a few hours, improved with aspirin, sitting up and walking around. In the morning, he says he still felt 'off' so he checked his BP and it was higher than he has ever seen it, SBP ~150s. These symptoms last occurred 7 mo ago when he went to urgent care for chest pain, dizziness, and lightheadedness. He had a stress test at the time that was wnl. He followed up with cardiology and was told he might need more invasive testing. He believes the pain is triggered by stress. Denies palpitations, nausea, vomiting, diaphoresis, blurry vision. Initial trops negative. Allergies No Known Allergies Allergy (Verified 08/27/20 01:46) - Past Medical/Surgical History Has patient received pneumonia vaccine in the past: No Diabetic: No Past Medical History: Patient denies medical history Past Surgical History: Patient denies surgical history - Family History Mother -: Heart disease, Hypertension Father -: Cancer Brother Notes: cerebral palsy - Social History Smoking Status: Never smoker Alcohol use: Yes CD- Drugs: No Caffeine use: Yes Place of Residence: Home Review of Systems General: Unremarkable Eyes: Unremarkable ENT: Unremarkable Respiratory: Shortness of Breath, As per HPI Cardiovascular: Chest Pain, As per HPI Gastrointestinal: Unremarkable Genitourinary: Unremarkable Musculoskeletal: Unremarkable Integumentary: Unremarkable Neurological: Unremarkable Lymphatics: Unremarkable Physical Examination - Physical Exam General: Alert, In no apparent distress, Oriented x3, Cooperative HEENT: Atraumatic, Normocephalic, PERRLA, Mucous membr. moist/pink, EOMI, Sc lerae nonicteric Neck: Supple, 2+ carotid pulse no bruit, JVD not distended, No Thyromegaly Respiratory: Clear to auscultation bilaterally, Normal air movement Cardiovascular: No edema, Normal pulses, Regular rate/rhythm, Normal S1 S2, No gallops, No rubs, No murmurs Capillary refill: <2 Seconds Gastrointestinal: Normal bowel sounds, Soft and benign, Non-distended, No ascites, No tenderness, No masses, No rebound, No guarding Musculoskeletal: No clubbing, No swelling, No contractures, No erythema, No tenderness, No warmth Integumentary: No rashes, No breakdown, No significant lesion, No tenderness/swelling, No erythema, No warmth, No cyanosis Neurological: Normal gait, Normal speech, Normal strength at 5/5 x4 extr, Normal tone, Sensation intact, Cranial nerves 3-12 intact, Normal affect Lymphatics: No axilla or inguinal lymphadenopathy - Studies Laboratory Data (last 24 hrs) 08/26/20 19:37: PT 11.1, INR 0.97, APTT 30.5 08/26/20 19:37: WBC 5.70, Hgb 17.2, Hct 49.5 H, Plt Count 149 L 08/26/20 19:37: Sodium 141, Potassium 4.1, BUN 19 H, Creatinine 0.96, Glucose 116 H, Magnesium 2.4, Total Bilirubin 1.5 H, AST 28, ALT 66, Alkaline Phosphatase 105, Lipase 82 Assessment and Plan - Problems (Diagnosis) (1) Chest pain Current Visit: Yes Status: Acute Qualifiers: Chest pain type: unspecified Qualified Code(s): R07.9 - Chest pain, unspecified - Plan cardiology consulted ASA, BB, statin, DVT ppx PRN morphine and NTG lipid panel, A1c pending TSH 4.623, T4 0.72, initiated levothyroxine dietitian consulted Discharge Plan: Home Plan to discharge in: 24 Hours - Advance Directives Does patient have a Living Will: No Does patient have a Durable POA for Healthcare: No - Code Status/Comfort Care Code Status Assessed: Yes (full code) Critical Care: No Time Spent Managing Pts Care (In Minutes): 70
[2020-08-27 04:14] VITALS: TEMP 98.3
[2020-08-27 04:40] VITALS: O2SAT 98
[2020-08-27 04:53] LABS: Absolute Lymphocytes (CBC) 1.7 K/uL (0.7-4.9); Basophils % 0.5 % (0-1.3); Hematocrit 48.1 % (39.6-49.0); Lymphocytes % 31.3 % (15.3-44.8); MPV 9.3 fL (7.6-11.3); RBC Red Blood Cell Count 5.44 M/uL (4.33-5.43)
[2020-08-27 05:39] LABS: ALT/SGPT 62 U/L (12-78); AST/SGOT 28 U/L (15-37); Alkaline Phosphatase 93 U/L (45-117); BUN Blood Urea Nitrogen 14 mg/dL (7-18); Bicarbonate 25 mmol/L (21-32); Bilirubin Total 1.6 mg/dL (0.2-1.0); Glucose Level 126 mg/dL (74-106); Potassium 3.9 mmol/L (3.5-5.1); Sodium Level 139 mmol/L (136-145)
[2020-08-27 05:40] LABS: Albumin 3.9 g/dL (3.4-5.0); HDL Cholesterol 26 mg/dL (40-60); Magnesium 2.4 mg/dL (1.8-2.4); Phosphorus 2.1 mg/dL (2.5-4.9); Protein, Total 6.7 g/dL (6.4-8.2)
[2020-08-27 05:57] LABS: LDL, Direct 70 mg/dL (100-129)
[2020-08-27 05:58] LABS: Urine Appearance CLEAR (Clear); Urine Bilirubin NEGATIVE (Negative); Urine Blood NEGATIVE (Negative); Urine Color YELLOW (Yellow); Urine Glucose TRACE (Negative); Urine Protein NEGATIVE (Negative)
[2020-08-27] MEDS ORDERED: METOPROLOL TAR 25 MG TAB PO SCH (06:00)
[2020-08-27 06:07] LABS: Urine Microscopic Reflex NO UMIC
[2020-08-27] MEDS ORDERED: METOPROLOL TAR 25 MG TAB ONE (06:09)
[2020-08-27 06:22] VITALS: BP 143/101
[2020-08-27] MEDS ORDERED: LEVOTHYROXINE SOD 0.075 MG TAB PO SCH (06:30)
[2020-08-27] MEDS ORDERED: POTASS/SODIUM PHOSPHATE 1 PKT POWD.PACK PO SCH (08:00)
[2020-08-27] MEDS ORDERED: ENOXAPARIN 40 MG/0.4 ML SQ ONE (08:03)
[2020-08-27] MEDS ORDERED: POTASS/SODIUM PHOSPHATE 1 PKT POWD.PACK ONE (08:03)
[2020-08-27] MEDS ORDERED: ASPIRIN EC 81 MG TAB PO ONE (08:03)
[2020-08-27] MEDS ORDERED: POTASSIUM CL SA 10 MEQ TAB PO ONE ×2 (08:31→09:00)
--- NOTE | 2020-08-27 08:33 | P.DS ---
Discharge Date: 08/27/20 Primary Care Provider: Benjamin Disposition: ROUTINE DISCHARGE Discharge Condition: GOOD Reason for Admission: chest pain Consultations: Pooling Operator Brief History of Present Illness: Mr. Bravo is a 55 yo male who presents with chest pain beginning last night. He says he was having troubling sleeping when he had onset of 5/10 sternal chest tightness and difficulty breathing lasting for a few hours, improved with aspirin, sitting up and walking around. In the morning, he says he still felt 'off' so he checked his BP and it was higher than he has ever seen it, SBP ~150s. These symptoms last occurred 7 mo ago when he went to urgent care for chest pain, dizziness, and lightheadedness. He had a stress test at the time that was wnl. He followed up with cardiology and was told he might need more invasive testing. He believes the pain is triggered by stress. Denies palpitations, nausea, vomiting, diaphoresis, blurry vision. Initial trops negative. Hospital Course: Patient seen by Cardiology and they recommended beta-lina and fenofibrate therapy. Patient clinically is doing well. At this time, patient is stable for discharge with outpatient follow with Cardiology in 1-2 weeks. Vital Signs/Physical Exam: Temp Pulse Resp BP Pulse Ox 98.3 F 63 17 143/101 H 99 08/27/20 04:00 08/27/20 08:00 08/27/20 08:00 08/27/20 08:00 08/27/20 08:00 General: Alert, In no apparent distress, Oriented x3 Laboratory Data at Discharge: WBC 5.30 K/uL (4.3-10.9) 08/27/20 04:36 Hgb 16.7 g/dL (13.6-17.9) 08/27/20 04:36 Hct 48.1 % (39.6-49.0) 08/27/20 04:36 Plt Count 129 K/uL (152-406) L 08/27/20 04:36 PT 11.1 SECONDS (9.5-12.5) 08/26/20 19:37 INR 0.97 08/26/20 19:37 APTT 30.5 SECONDS (24.3-36.9) 08/26/20 19:37 Sodium 139 mmol/L (136-145) 08/27/20 04:36 Potassium 3.9 mmol/L (3.5-5.1) 08/27/20 04:36 BUN 14 mg/dL (7-18) 08/27/20 04:36 Creatinine 0.86 mg/dL (0.55-1.3) 08/27/20 04:36 Glucose 126 mg/dL (74-106) H 08/27/20 04:36 Phosphorus 2.1 mg/dL (2.5-4.9) L 08/27/20 04:36 Magnesium 2.4 mg/dL (1.8-2.4) 08/27/20 04:36 Total Bilirubin 1.6 mg/dL (0.2-1.0) H 08/27/20 04:36 AST 28 U/L (15-37) 08/27/20 04:36 ALT 62 U/L (12-78) 08/27/20 04:36 Alkaline Phosphatase 93 U/L (45-117) 08/27/20 04:36 Troponin I < 0.02 ng/mL (0.0-0.045) 08/27/20 04:36 Triglycerides 519 mg/dL (<150) H 08/27/20 04:36 Cholesterol 141 mg/dL (<200) 08/27/20 04:36 LDL Cholesterol Direct 70 mg/dL (100-129) L 08/27/20 04:36 HDL Cholesterol 26 mg/dL (40-60) L 08/27/20 04:36 Cholesterol/HDL Ratio 5.42 08/27/20 04:36 Lipase 82 U/L (73-393) 08/26/20 19:37 Home Medications: Amlodipine [Norvasc*] 5 mg PO DAILY #30 tab 08/27/20 Aspirin [Aspirin EC 81 MG] 81 mg PO DAILY #30 tablet. 08/27/20 Atorvastatin Calcium [Lipitor*] 20 mg PO BEDTIME #30 tab 08/27/20 Levothyroxine [Synthroid*] 0.075 mg PO DAILYAC #30 tab 08/27/20 Metoprolol Tartrate [Lopressor*] 25 mg PO BID 6AM 6PM #60 tab 08/27/20 clonazePAM [Klonopin] 0.5 mg PO TID PRN #30 tablet 08/27/20 New Medications: Aspirin [Aspirin EC 81 MG] 81 mg PO DAILY #30 tablet. clonazePAM [Klonopin] 0.5 mg PO TID PRN #30 tablet PRN Reason: Anxiety Atorvastatin Calcium [Lipitor*] 20 mg PO BEDTIME #30 tab Metoprolol Tartrate [Lopressor*] 25 mg PO BID 6AM 6PM #60 tab Amlodipine [Norvasc*] 5 mg PO DAILY #30 tab Levothyroxine [Synthroid*] 0.075 mg PO DAILYAC #30 tab Physician Discharge Instructions: OK TO DC IV AND DC HOME FOLLOW-UP WITH PRIMARY CARE PROVIDER IN 1-2 WEEKS FOLLOW-UP WITH CARDIOLOGY IN 1-2 WEEKS RETURN TO THE ER IF symptoms worsen CALL or TEXT DR. DUGGAN AT [phone] IF ANY QUESTIONS REGARDING HOSPITAL STAY. PLEASE CALL THE FLOOR AT [phone] IF ANY MEDICATION OR NURSING QUESTIONS. Diet: AHA Activity: Fall precautions Followup: Peter Sharp MD [ACTIVE - CAN ADMIT] - Rei Alexander DO [Primary Care Provider] - Time spent managing pt's care (in minutes): 30
[2020-08-27] MEDS ORDERED: ENOXAPARIN 40 MG/0.4 ML SQ SCH (09:00)
[2020-08-27] MEDS ORDERED: ASPIRIN EC 81 MG TAB PO SCH (09:00)
--- NOTE | 2020-08-27 12:13 | EKG ---
Test Date: 2020-08-27 Test Time: 01:04:16 Remote Sensing Analyst: JOAQUINA MEASUREMENT RESULTS: Intervals: Rate: 58 [place]: 160 QRSD: 94 QT: 430 QTc: 422 [place]: P: 54 [place]: 160 QRS: -8 T: 27 INTERPRETIVE STATEMENTS: Sinus bradycardia Otherwise normal ECG Compared to ECG 04/08/2017 03:44:48 Sinus rhythm no longer present Electronically Signed On 08-27-20 12:13:14 CDT by Peter Sharp
--- NOTE | 2020-08-27 12:16 | EKG ---
Test Date: 2020-08-26 Test Time: 14:34:35 Court Orderly: FARHATL MEASUREMENT RESULTS: Intervals: Rate: 89 [place]: 152 QRSD: 84 QT: 360 QTc: 438 [place]: P: 41 [place]: 152 QRS: -34 T: 1 INTERPRETIVE STATEMENTS: Normal sinus rhythm Left axis deviation Possible Anterior infarct, age undetermined Abnormal ECG Compared to ECG 04/08/2017 03:44:48 Left-axis deviation now present Myocardial infarct finding now present Electronically Signed On 08-27-20 12:13:32 CDT by Peter Sharp
--- NOTE | 2020-08-27 15:51 | CON ---
Date of Consultation: 08/27/2020 Reason For Consultation: Chest pain. History Of Present Illness: Mr. Bravo is a 55-year-old male, who has awoken a couple of days ago with a sharp, stabbing right shoulder and right chest pain with shortness of breath that has persisted fo r 48 hours. Has been seen at [facility] with negative workup, recently seeing a director of maternity services and he has h ad a negative echo and negative stress test. He is under a lot of stress and feels himself that he h as a panic disorder attack at this point. He has already had a normal EKG, normal x-ray, normal trop onin, normal BNP. Continues to have some symptoms mostly with movement. He denied PND, orthopnea, p edal edema, palpitations, or syncope. Past Medical History: Includes irregular heartbeat, no specific diagnosis. Allergies: NONE. Medications: At home are none. Review of Systems: Negative. Social History: Negative. Family History: Negative. Physical Examination: Vital Signs: Stable, afebrile. HEENT: Negative. Neck: Supple with no bruit. Chest: Clear. Cardiac: Revealed a regular rhythm and rate. No murmurs, gallops, or rubs. Abdomen: Benign. Extremities: Revealed no clubbing, cyanosis, or edema. Diagnostic Data: All normal except the triglycerides of 519. Impression And Plan: 1.Atypical chest pain, most likely related to panic disorder. 2.Hypertriglyceridemia. 3.Palpitations. I will consider low-dose beta lina, low-dose fenofibrate, and follow up with his primary care physician. I will be happy to see him in the office in the next 2 weeks. No further c ardiac workup recommended at this point. He can go home whenever it is okay with Dr. Douglas. JAIR/TRISTANL Voice ID: [id number] Report ID: [id number]
[2020-08-27] MEDS ORDERED: ATORVASTATIN 20 MG TAB PO SCH (21:00)
--- NOTE | 2020-09-25 10:05 | P.PN ---
Date of Service: 09/25/20 Patient called me requesting refills of his medications. These were called in to the local pharmacy. Did inform the patient would no longer be of the call and any further refills. He will need to follow with his primary care provider as well as his airport engineer.
== END 2020-08-27 09:36 | disposition home or self-care (01) | DRG 880 ==
LOC: ER 14:17 → ERHOLD 21:19 → OBSVTOIN 08-27 08:04 → ERHOLD 08-27 08:37
PROVIDERS: ADMIT Hospitalist; ATTEND Hospitalist
DX: F41.0 Panic disorder [episodic paroxysmal anxiety] (principal); E78.1 Pure hyperglyceridemia; R00.2 Palpitations; Z79.82 Long term (current) use of aspirin; Z79.890 Hormone replacement therapy; Z79.899 Other long term (current) drug therapy; Z20.822 Contact with and (suspected) exposure to COVID-19
CPT/HCPCS: 36415; 71045; 80048; 80053; 80061; 80076; 81003; 82550; 82553; 83036; 83690; 83735; 83880; 84100; 84439; 84443; 84484; 85025; 85379; 85610; 85730; 87040; 93005; 94760; 96361; 96372; 96374; 99285; G0378; J1650; J7030; U0003

== ENCOUNTER 2024-03-06 08:01 | Day surgery (SDC) | payer OTHER ==
[2024-03-06] MEDS ORDERED: CEFAZOLIN SODIUM 1 GM/VIAL ONE (08:32)
[2024-03-06 09:05] LABS: Absolute Eosinophils 0.2 K/uL (0-0.5); Absolute Monocytes 0.4 K/uL (0.1-1.3); Absolute Neutrophil 2.5 K/uL (1.8-8.0); Basophils % 0.4 % (0-1.3); Eosinophils % 4.9 % (0-4.4); Hematocrit 45.9 % (39.6-49.0); Hemoglobin 16.2 g/dL (13.6-17.9); Lymphocytes % 24.1 % (15.3-44.8); MCH 31.2 pg (27.0-35.0); MCHC 35.2 g/dL (32.0-36.0); MCV 88.8 fL (80-100); MPV 9.1 fL (7.6-11.3); Monocytes % 9.6 % (3.3-12.3); Nucleated Red Blood Cells % 0.3 % (0-0); Platelets 127 thou/uL (152-406); RBC Red Blood Cell Count 5.17 M/uL (4.33-5.43); Red Cell Distribution Width 13.4 % (12.1-15.2)
--- NOTE | 2024-03-06 09:07 | RAD REPORT ---
EXAMINATION: TWO VIEW CHEST XR CLINICAL INDICATION: preop TECHNIQUE: 2 views of the chest was performed. COMPARISON: 08/26/2020 FINDINGS: The lungs are well inflated and clear. The heart is normal in size. No displaced fractures evident. IMPRESSION: No acute or significant abnormalities.
[2024-03-06] MEDS: NA CHLORIDE 0.9% 1,000 ML ONE (09:15)
[2024-03-06] MEDS ORDERED: MIDAZOLAM HCL 2 MG/2 ML INJ ONE (09:44)
[2024-03-06] MEDS ORDERED: KETOROLAC 30 MG/ML INJ ONE (09:44)
[2024-03-06] MEDS ORDERED: FENTANYL CITR 100 MCG/2 ML ONE (09:44)
[2024-03-06] MEDS ORDERED: ONDANSETRON 4 MG/2 ML VIAL ONE (09:44)
[2024-03-06] MEDS ORDERED: dexAMETHasone 10 MG/ML VIAL ONE ×3 (09:44→10:50)
[2024-03-06] MEDS ORDERED: ROCURONIUM 50 MG/5 ML VIAL IV ONE ×2 (09:44→10:46)
[2024-03-06] MEDS ORDERED: propofoL 200 MG/20 ML VIAL IV ONE (09:44)
[2024-03-06] MEDS ORDERED: LIDOCAINE 2% MPF 5 ML VIAL ONE (09:44)
[2024-03-06] MEDS: CEFAZOLIN SODIUM 1 GM/VIAL IVP ONE (10:22)
[2024-03-06] MEDS ORDERED: BUPIVACAINE 0.25% PF 30 ML VIAL ONE (10:23)
[2024-03-06] MEDS ORDERED: BUPIVACAINE 0.5% PF 10 ML VIAL ONE ×3 (10:49→10:50)
[2024-03-06] MEDS ORDERED: EPINEPHRINE 1 MG/ML VIAL ONE (10:50)
[2024-03-06] MEDS ORDERED: SUGAMMADEX SODIUM 200 MG/2 ML VIAL IV ONE (11:03)
[2024-03-06] MEDS ORDERED: NA CHLORIDE 0.9% 1,000 ML ONE (11:33)
--- NOTE | 2024-03-06 11:35 | P.BOP ---
Preoperative diagnosis: incarcerated tender umbilical hernia 5cm Postoperative diagnosis: same Primary procedure: Laparoscopic repair of incarcerated umbilical hernia with mesh Secondary procedure: Laparoscopic lysis of adhesions Estimated blood loss: <20cc Specimen: hernia sac, omentum Findings: incarcerated omentum ligated Anesthesia: General Complications: None Implants: large ventralex Transferred to: Recovery Room Condition: Good
--- NOTE | 2024-03-06 12:34 | EKG ---
Test Date: 2024-03-06 Test Time: 08:55:33 Radiotelegraph Operator Servicer: SKYLA MEASUREMENT RESULTS: Intervals: Rate: 69 [place]: 158 QRSD: 92 QT: 402 QTc: 430 [place]: P: 38 [place]: 158 QRS: -35 T: 12 INTERPRETIVE STATEMENTS: Normal sinus rhythm Left axis deviation Inferior infarct, age undetermined Cannot rule out Anterior infarct, age undetermined Abnormal ECG Compared to ECG 08/27/2020 01:04:16 Left-axis deviation now present Myocardial infarct finding now present Sinus bradycardia no longer present Electronically Signed On 03-06-24 12:34:03 CDT by Feliciano Shepherd
[2024-03-06] MEDS: CODEINE 30MG/APAP 300MG TAB ONE (13:04)
[2024-03-06 13:41] VITALS: BP 127/85; TEMP 97.5; O2SAT 95
--- NOTE | 2024-03-06 22:46 | OP ---
Date of Procedure: 03/06/2024 Surgeon: Cory Lim MD Preoperative Diagnosis: Incarcerated tender umbilical hernia. Postoperative Diagnosis: Incarcerated tender umbilical hernia, intraabdominal adhesions. Procedure: Laparoscopic repair of incarcerated tender umbilical hernia with mesh and laparoscopic ly sis of adhesions. Estimated Blood Loss: Less than 20 mL. Specimens: Hernia sac and omentum. Findings: Incarcerated omentum that has to be ligated since it was not healthy. Anesthesia: General plus local. Implants: A large Ventralex mesh. Indications: This is the case of a 58-year-old, comes to us with an incarcerated umbilical large her dom[place]. The benefits, alternatives, and risks of laparoscopic possible repair with possible mesh were f ully explained, which include, but not limited to infection, bleeding, damage to adjacent structures, anesthesia complication, recurrence, NH, and even . He also understands this might not relieve any symptoms. He might need more than one surgical intervention. He also understands we may have t o use a mesh in that region, so pros and cons of mesh use were discussed with the patient. All of th e questions were answered to his satisfaction, he signed a consent. Procedure In Detail: The patient was brought to the operating room, placed in supine position. Anes thesia was done without complication. Abdominal area was prepped and draped in a sterile fashion. A time-out was called. After that, a curvilinear was made in the infraumbilical region. I ncision was carried down until we found the hernia sac. large hernia sac. The opening is not that big, it is about 5 cm hernia. At that moment, I proceeded then to open hernia sac, we noti ayan omentum, but it is a large amount of omentum and it cannot be reduced, so between Brenda clamps we proceeded then to suture ligate the omentum and the area extra was removed and sent to the pathologi st. After that, after checking for hemostasis, we proceeded then to reduce back the omentum. There were some adhesions intra-abdominally that will be addressed laparoscopically to allow this omentum t o reduce completely. At that moment, I proceeded to remove the hernia sac, cleaned its fascial edges , and put a [id number] #1 Prolene multiple times to approximate the defects. We tied few of the m, but not all of them since we would like to put the Willis trocar right in the center and obtain pn eumoperitoneum. Once we did that, we put the cameras in and put a 5 mm trocar to the left and right abdomen under direct visualization. From that angle, we were able to the midline and see the adhesions present and they were addressed with the help of a ligature device and also partially r emoved the falciform ligament to allow the mesh to be placed nice and flat against the abdomen. We n oticed the fascial edges to be weak enough to require mesh as the reinforcement even after trying to approximate that primary, the fascia is not strong enough. So, once we have adhesions removed, we we re able to identify the area, obtain a large Ventralex mesh to overlap the area about 3-5 cm. The me sh was introduced through the Willis trocar, pulled the straps. Willis trocar was removed and the me sh was secured anteriorly with the help of SorbaFix fixation device. After that, we removed the stra ps and further fixed the mesh against the anterior abdominal wall. After that, we closed the last fe w Prolene left to proximate the defect making this a water seal and air seal closure. We inspected t he mesh once again, and flat against the abdominal wall, the area of the lysis of adhesion s shows no bleeding, the area of the omentectomy shows no bleeding, no enterotomies. So under direct visualization, we proceeded to deflate the abdomen and remove the trocars. The subcutaneous tissue, closed with 3-0 chromic and skin in a subcuticular fashion with 3-0 chromic and Steri-Strips on top. Sponge count and instrument counts were correct. The patient tolerated the procedure well. The patient was sent to the recovery in stable condition. JOSELYN/MATTHEW Voice ID: [id number] Report ID: [id number]
--- NOTE | 2024-03-06 23:07 | DS ---
Date of Discharge: 03/06/2024 Diagnosis: Incarcerated tender umbilical hernia, it is about 5 cm. Procedure: Laparoscopic repair of an incarcerated umbilical hernia with mesh and laparoscopic lysis of adhesions. Condition: Stable. Disposition: Home. Activities: As tolerated. No heavy lifting. Discharge Instructions: Follow up in my office in 1 week. Call for appointment at [phone]. Keep a lexis dry until see us in the clinic. If he has to get it wet, then wait at least 48 hours and then ma y remove outer dressings except the Steri-Strip and clean with soap and water and then replace cotton balls and the gauze. JOSELYN/MATTHEW Voice ID: [id number] Report ID: [id number]
== END 2024-03-06 13:30 | disposition home or self-care (01) ==
LOC: OR 08:01
PROVIDERS: ATTEND Surgery
PROC: 0WUF4JZ Supplement Abdominal Wall with Synthetic Substitute, Percutaneous Endoscopic Approach (ICD-10-PCS; principal; 2024-03-06 11:15)
DX: K42.0 Umbilical hernia with obstruction, without gangrene (principal)
CPT/HCPCS: 36415; 71046; 80048; 82947; 85025; 88302; 93005; J0171; J0690; J1100; J2003; J2250; J2405; J2704; J3010; J7030